=== PATIENT | male | born 1965 | race Caucasian/White ===

== ENCOUNTER 2023-09-27 09:38 | Day surgery (SDC) | payer OTHER ==
[~2023-09-27 09:38] MED LIST: Lactated Ringers 1,000 ML IV SCH
[2023-09-27] MEDS ORDERED: fentaNYL 100 MCG/2 ML SDV ONE (10:20)
[2023-09-27] MEDS ORDERED: Propofol 200 MG/20 ML SDV ONE ×2 (10:20→11:38)
== END 2023-09-27 12:55 | disposition home or self-care (01) ==
LOC: VM.SDS 09:38
PROVIDERS: ATTEND Surgery
DX: Z12.11 Encounter for screening for malignant neoplasm of colon (principal); I10 Essential (primary) hypertension; J45.30 Mild persistent asthma, uncomplicated; K21.9 Gastro-esophageal reflux disease without esophagitis; G43.509 Persistent migraine aura without cerebral infarction, not intractable, without status migrainosus; F17.210 Nicotine dependence, cigarettes, uncomplicated; Z79.51 Long term (current) use of inhaled steroids; Z79.899 Other long term (current) drug therapy
CPT/HCPCS: 00812; J2704; J3010; J7120